=== PATIENT | female | born 1975 | race Caucasian/White ===

== ENCOUNTER 2023-12-26 09:42 | Outpatient (AMB) | payer OTHER, SELFPAY ==
--- NOTE | 2023-12-26 10:02 | AM.OFFWIN_ITS ---
Intake Vital Signs 12/26/23 10:04 Height 5 ft 5 in Weight 221 lb 8 oz BMI 36.9 BP 118/80 Blood Pressure Location Rt brachial Position Sitting Respiration 16 Pulse 80 Pulse Source Pulse Oximeter Temp 98.6 F Temp Source Oral Pulse Oximetry (%) 99 Oxygen Delivery Method Room Air Intake Visit Reasons: est/bronchitis? Intake Note: Fatigue, coughing, chest heaviness, wheezing. Allergies Penicillins Allergy (Unknown, Verified 12/26/23 10:09) welts all over body Medication List - [facility] No Known Home Meds Do you need a note to return to daycare/school/sports/work: Yes Return to daycare/school/sports/work/other note: work HPI HPI Comments History of Present Illness Details 48-year-old female here today with chief complaints of a cough. She reports that it started last Tuesday after being exposed to her child who had pneumonia and was sick for about 3-4 weeks prior to the onset of her illness. She reports that the cough is productive, her ears hurt, she has a sore throat from coughing, she feels tired. She reports the son did not have COVID. She did not perform a COVID test on herself. She denies any fever, chills, chest pain, hemoptysis. She also denies a history of asthma or COPD. She has not tried any medications at home to help her symptoms rather she has been eating pineapple and drinking warm tea without great relief. Exam: Awake alert NAD Sclera and conjunctiva clear bilat Nares mucoid discharge bilat, turbinates pink and edematous, no sinus tenderness with palpation bilat TM intact with mucoid congestion bilat, mild bulging MMM, pharynx positive erythema without exudate, postnasal drip RRR LS CTAB , hacking congested cough noted during exam without respiratory distress Plan: She has not allergy to penicillin. She reports that she has responded well in the past who azithromycin. We will prescribe a Z-Sami, Tessalon and Flonase. Advised to take as directed. Educated on reasons to return to the office. This note is constructed using voice recognition software. While every effort has been made to ensure accuracy in horse doctor, still errors may have been included Sometimes, these errors may affect the content or meaning of the given sentence . Physical Exam Vital Signs: Last Vital Signs Temp 98.6 F 12/26/23 10:04 Pulse 80 12/26/23 10:04 Resp 16 12/26/23 10:04 BP 118/80 12/26/23 10:04 Pulse Ox 99 12/26/23 10:04 Oxygen Delivery Method Room Air 12/26/23 10:04 BMI result Body Mass Index 36.9 Assessment & Plan Assessment & Plan (1) Otitis media: Code(s): H66.90 - Otitis media, unspecified, unspecified ear Qualifiers: Otitis media type: mucoid Chronicity: acute Laterality: bilateral Qu alified Code(s): H65.193 - Other acute nonsuppurative otitis media, bilateral Plan: . (2) Cough: Code(s): R05.9 - Cough, unspecified Qualifiers: Cough type: acute Qualified Code(s): R05.1 - Acute cough Plan: . Medications: New fluticasone propionate 50 mcg/actuation administer into each nostril 1 spray intranasal BID 16 grams 0RF azithromycin For 250 mg dose pack: take 500 mg today (day 1), then 250 mg for 4 days (days 2-5) PO 5 days 6 tabs 0RF benzonatate 100 mg PO TID 10 days PRN 30 caps 1RF cough Coding Level of Care Code Est Pt Level 3 (18009) Diagnoses Acute mucoid otitis media of both ears H65.193 Otitis media type: mucoid Chronicity: acute Laterality: bilateral Acute cough R05.1 Cough type: acute
[2023-12-26 10:04] VITALS: BP 118/80; PULSE 80; RESP 16; TEMP 37; O2SAT 99; BMI 36.9
== END 2023-12-26 12:33 | disposition home or self-care (01) ==
PROVIDERS: PCP Physician Assistant Medical; Visit Provider Nurse Practitioner Family
DX: H65.193 Other acute nonsuppurative otitis media, bilateral (principal); R05.1 Acute cough
CPT/HCPCS: 99213

== ENCOUNTER 2024-03-29 09:13 | Outpatient (AMB) | payer OTHER, SELFPAY ==
--- NOTE | 2024-03-29 09:20 | MHC.PC.OV ---
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 Intake Note: new patient to establish care Rn Charge Required: No Allergies Penicillins Allergy (Unknown, Verified 03/29/24 09:22) welts all over body Tobacco use date assessed: 03/29/24 Dental Screening Dental Screen Date: 03/29/24 Did you have a dental visit in the last 12 months?: Yes Did you have a dental problem in the last 6 months where you did not have access to dental care?: No Was dental information given to patient?: Patient has dentist HPI HPI Comments History of Present Illness Details This is a 48-year-old female with a past medical history of obesity, hypertension, palpitations, anxiety, and hyperlipidemia presenting to [facility]. She requests a physical exam. She transferred from [place]. We have not received her medical records. Palpitations-she was evaluated by Cardiology. She had a 48 hour Holter monitor which was normal, and EKGs were also normal. Episodes last a few minutes. They are associated with chest tightness and always associated with stress. Hyperlipidemia-no current medications. She is concerned about her weight impacting her blood pressure and cholesterol. The only time she was able to lose weight is when she starved herself. She has taken weight loss supplements. She walks daily for exercise. She follows a portion controlled diet that is low in carbohydrates and high in fiber. She takes turmeric. She has been unsuccessful at losing weight over the past 6 months. She is interested in weight loss medication. Her blood pressure is mildly elevated today, but at her appointment at the walk-in on 12/26/2023 it was 118/80. She monitors it at home, and it is less than 130/80. She will send me the readings over the portal in a couple of weeks. She was anxious to come today and very stressed. Patient says anxiety and stress impact her. She works at [employer] but she has not been given the opportunity for growth and development. She is looking for a new position. She has a 12-year-old son and 20-year-old daughter. Her 20-year-old daughter had mental health issues and was diagnosed with POTS a couple of years ago. They also do not always agree. Patient says she has also had some difficulties in her marriage in the last couple of years. She did therapy with her daughter in the past, but she does not want to do therapy right now citing her schedule. She does not sleep very well. She drinks 2 alcoholic beverages per night. She drinks a little more on the weekends but over a long period of time like 5 or 6 hours. She snores, but she denies witnessed apneic episodes. We discussed a sleep study, but she wants to work on weight loss 1st and see if the snoring resolves. Patient says snoring is new since she gained weight. Mammogram is scheduled in April at [facility]. Her chief guard is. Dr. [place]. She had a colonscopy December 2023. She had 1 polyp and diverticulosis. Repeat colonoscopy advised in 3 years. Eye and dental exams are scheduled. ROS: Constitutional: No unexplained weight loss, fever, chills chills or night sweats. +fatigue. Eyes: No vision changes, blurry vision, double vision, eye pain, eye redness, eye discharge. ENT: No hearing loss, sneezing, congestion, runny nose or sore throat. Respiratory: No shortness of breath, cough or sputum production. Cardiovascular: No chest pain, chest pressure or chest discomfort. No palpitations or pedal edema. Gastrointestinal: No anorexia, nausea, vomiting or diarrhea. No abdominal pain or blood in stool. Genitourinary: No dysuria, hematuria, urinary frequency. Neurologic: No headache, dizziness, syncope, unilateral weakness, ataxia, numbness or tingling in the extremities. Musculoskeletal: No joint pain or swelling. Hematologic/Lymphatics: No bleeding or bruising. No painful lymph nodes. Skin: No rash or itching. Endocrine: No cold or heat intolerance. No polyuria or polydipsia. Psychiatric: No SI or HI. See HPI Physical exam: Constitutional: Alert, in no distress. Head: Normocephalic. Eyes: Pupils are equal, round and reactive to light. Extraocular muscles intact. Ear, Nose and Throat: Canals clear. TMs normal. Normal nasal mucosa. No nasal discharge. No oral lesions. Neck: Supple, Full range of motion. No lymphadenopathy. No palpable thyroid masses. Respiratory: Clear to auscultation. Cardiovascular: S1 S2 regular. No murmurs. Gastrointestinal: Abdomen soft, non-tender, non-distended. Normal bowel sounds. No palpable masses. Neurologic: No focal neurological deficits. Symmetric patellar reflexes. Moves all extremities spontaneously. Sensation intact bilaterally. Skin: No rashes or lesions. Musculoskeletal: No gross deformities. Normal range of motion. Extremities: Warm and well perfused. No clubbing, cyanosis or edema. 3+ peripheral pulses bilaterally. Psychiatric: Normal mood and affect [facility] Medical History (Updated 03/29/24 @ 10:34 by NATALIE Solorio) Colon polyp Obesity, Class II, BMI 35-39.9 Routine physical examination Pure hypercholesterolemia Anxiety Palpitations Hypertension Surgical History (Updated 03/29/24 @ 09:28 by Adolfo Tadeo MA) History of ankle surgery Family History (Updated 03/29/24 @ 10:08 by NATALIE Solorio) Maternal Grandfather Prostate cancer Mother Diabetes Cancer of kidney Maternal Uncle Family history of hemochromatosis Social History (Updated 03/29/24 @ 09:25 by Adolfo Tadeo MA) Household Members: Spouse and Children Both parents involved: No Caregiver staying overnight: No Housing: House Are you a primary vp care management to a significant other at home: Yes Do you presently have visiting nurse or other home services: No 75 years or older and lives alone: No Alcohol intake: current Alcohol intake frequency: a few times a month Patient Tobacco Use Status: Never used Tobacco e-Cigarette/Vaping Use: Never Used Second Hand Smoke Exposure: No service: No Current occupational status: employed 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 1. Little interest or pleasure in doing things: several days 2. Feeling down, depressed, or hopeless: several days 3. Trouble falling or staying asleep, or sleeping too much: nearly every day 4. Feeling tired or having little energy: more than half the days 5. Poor appetite or overeating: nearly every day 6. Feeling bad about yourself - or that you are a failure or have let yourself or your family down: several days 7. Trouble concentrating on things, such as reading the newspaper or watching television: not at all 8. Moving or speaking so slowly that other people could have noticed. Or the opposite - being so fidgety or restless that you have been moving around a lot more than usual: not at all 9. Thoughts that you would be better off or of hurting yourself in some way: not at all Total score: 11 Depression Screening Interpretation: Positive Depression Screening Done: Yes 69011 - PHQ-9 Billing: Yes Source: Developed by Drs. Panda Guzman, Madelyn Casiano, Prakash Fletcher and colleagues, with an educational stephan from [employer]. Thrive Questionnaire Date Thrive assessed: 03/29/24 I am a: Patient What is your living situation today?: I have a steady place to live Within the past 12 months, did the food you bought not last and you didn't have the money to get more?: Never true Within the past 12 months, did you worry whether your food would run out before you got money to buy more?: Never true Do you have trouble paying for medicines?: No Do you have trouble getting transportation to medical appointments?: No Do you have trouble paying your heating and electricity bill?: No Do you have trouble taking care of your child, family member or friend?: No Do you have trouble with day-to-day activities such as bathing, preparing meals, shopping, managing finances, etc.?: No Are you currently unemployed and looking for a job?: No Are you interested in more education?: No Please select the resources that you would like help with: None Currently or been in a relationship where the following occur: No concerns reported THRIVE Score: 0 AUDIT C Alcohol Use Questionnaire (AUDIT-C) 1. How often do you have a drink containing alcohol?: 4 or more times a week 2. How many drinks containing alcohol do you have on a typical day when you are drinking?: 1 or 2 3. How often do you have six or more drinks on one occasion?: Never Total Score: 4 JOSE-7 AMB Questionnaire JOSE-7 Date JOSE - 7 assessed: 03/29/24 Feeling nervous, anxious, or on edge: 1 = Several days Not being able to stop or control worryin = More than half the days Worrying too much about different things: 3 = Nearly every day Trouble relaxin = Nearly every day Being so restless that it is hard to sit still: 0 = Not at all Becoming easily annoyed or irritable: 1 = Several days Feeling afraid as if something awful might happen: 1 = Several days Total JOSE-7 score (0-4 normal; 5-9 mild; 10-14 moderate; 15-21 severe): 11 Source: Developed by Drs. Panda Guzman, Madelyn Casiano, Prakash Fletcher and colleagues, with an educational stephan from [employer]. JOSE-7 Assessment Billing JOSE-7 Assessment Tool: JOSE-7 Assessment 04108 Physical exam (Primary Care) Vital Signs: Last Vital Signs Temp 98.4 F 03/29/24 09:28 Pulse 81 03/29/24 09:28 Resp 14 03/29/24 09:28 BP 142/88 H 03/29/24 09:28 Pulse Ox 97 03/29/24 09:28 Oxygen Delivery Method Room Air 03/29/24 09:28 BMI result Body Mass Index 37.3 Tobacco/Smoking Status: Tobacco use Status Tobacco use date assessed 03/29/24 03/29/24 09:31 Patient Tobacco Use Status Never used Tobacco 03/29/24 09:31 e-Cigarette/Vaping Use Never Used 03/29/24 09:31 PHQ-9: PHQ-9 Score PHQ-9: Total score 11 03/29/24 10:34 Depression Screening Interpretation: Positive Thrive Assessment: Date of Thrive Assessment Date Thrive assessed 03/29/24 03/29/24 09:31 Currently or been in a relationship where the following occur: No concerns reported Office Procedures Flu Questionnaire Does the patient have a severe egg allergy?: No Does the patient have severe life threatening allergies?: No Does the patient have a fever or illness today?: No Has the patient ever had Guillain-[place] Syndrome?: No Has the patient ever had any past reaction to a flu shot?: No Immunizations Fluarix Triv [id number] (PF) 45 mcg (15 mcg x 3)/0.5 mL IM syringe Performing Provider: NATALIE Solorio Performing Location: [facility] Administered by: Gayle Irizarry RN on 03/29/24 10:34 Dose Route Admin Location Dispensed Lot Number Expiration Date [employer] Project [employer] 0.5 mL IM Left Deltoid 0.5 mL [id number] 11/19/24 59121-042-49 Past[employer] VIS Given Date VIS Provided VIS Publication Date 03/29/24 Single Vaccine 20 Eligibility Eligibility Date Funding Source Not [facility] Eligible 03/29/24 Private Coding Level of Care Code Est Pt Level 3 (64648) Est Pt Prev Care 40-64y(92687) Diagnoses Routine physical examination Z00.00 Pure hypercholesterolemia E78.00 Obesity, Class II, BMI 35-39.9 E66.812 Hypertension I10 Additional Codes JOSE-7 Assessment Billing - JOSE-7 Assessment Tool: JOSE-7 Assessment 57331 ([id number]) PHQ-9 - 69308 - PHQ-9 Billing: Yes ([id number]) Assessment & Plan Assessment & Plan (1) Routine physical examination: Code(s): Z00.00 - Encounter for general adult medical examination without abnormal findings Category: Medical Plan: Patient is seen today for a routine physical. As part of this visit we reviewed the following issues, which are considered and essential part of preventative health in this age group: - Breast Cancer screening - Annual Chief Operator Hydroformer exam - Screening for colon cancer - Blood pressure screening - Cholesterol screening - Osteoporosis prevention including calcium/vitamin D intake, weight bearing exercise & smoking cessation - Nutritional and exercise counseling - Counseling of injury prevention including fire prevention, smoke alarms and seat belt usage - Screening for depression - Prevention of and/or testing for infectious diseases - Education about skin cancer - Recommendations about immunizations - Recommendation of an eye exam - Screening for substance abuse (2) Pure hypercholesterolemia: Code(s): E78.00 - Pure hypercholesterolemia, unspecified Category: Medical Plan: Check fasting lipid profile. Recommended Mediterranean diet and exercise 5 days per week for 30 minutes to promote weight loss. (3) Obesity, Class II, BMI 35-39.9: Code(s): E66.812 - Obesity, class 2 Category: Medical Plan: Patient has been unable to lose weight despite more than 6 months of lifestyle modifications. Check fasting labs and TSH. She would like to try a GLP 1. She denies contraindications to this medication. We reviewed the potential side effects and adverse effects and administration and need for titration based on tolerability and response. Once her blood tests have been completed I will review them and submit the prescription to the pharmacy if it is appropriate. (4) Hypertension: Code(s): I10 - Essential (primary) hypertension Category: Medical Plan: Mildly elevated blood pressure today. She will send the readings over the portal in couple of weeks. Plan Follow up in 3 months for obesity/med check. Orders: Orders Influenza [id number] Immunization Today Z23 - Encounter for immunization Comprehensive Met. Panel Today E78.00 - Pure hypercholesterolemia, unspecified, Z00.00 - Encounter for general adult medical examination without abnormal findings Lipid Panel Today E78.00 - Pure hypercholesterolemia, unspecified, E78.5 - Hyperlipidemia, unspecified, Z00.00 - Encounter for general adult medical examination without abnormal findings TSH reflex Free T4 Today E78.00 - Pure hypercholesterolemia, unspecified, Z00.00 - Encounter for general adult medical examination without abnormal findings Complete Blood Count no Diff Today E78.00 - Pure hypercholesterolemia, unspecified, Z00.00 - Encounter for general adult medical examination without abnormal findings Magnesium Today E78.00 - Pure hypercholesterolemia, unspecified, Z00.00 - Encounter for general adult medical examination without abnormal findings Hemoglobin A1c Today R73.01 - Impaired fasting glucose Medications: New Fluarix Triv [id number] (PF) (flu vacc [id number] 6mos up(PF)) 0.5 mL IM ONCE 0.5 mL 0RF NS Z23 - Encounter for immunization
[2024-03-29 09:28] VITALS: BP 142/88; PULSE 81; RESP 14; TEMP 36.9; O2SAT 97; BMI 37.3
== END 2024-03-29 10:32 | disposition home or self-care (01) ==
LOC: HO.HMCFM 09:14
PROVIDERS: PCP Physician Assistant Medical; Visit Provider Physician Assistant Medical
DX: Z00.00 Encounter for general adult medical examination without abnormal findings (principal); E78.00 Pure hypercholesterolemia, unspecified; E66.812 Obesity, class 2; Z68.37 Body mass index [BMI] 37.0-37.9, adult; I10 Essential (primary) hypertension; Z23 Encounter for immunization

== ENCOUNTER → 2024-03-29 09:13 | Outpatient (BNVA) | payer OTHER, SELFPAY | PROVIDERS: PCP Physician Assistant Medical; Visit Provider Physician Assistant Medical | DX: Z00.00 Encounter for general adult medical examination without abnormal findings (principal); Z23 Encounter for immunization; E78.00 Pure hypercholesterolemia, unspecified; E66.812 Obesity, class 2; Z68.37 Body mass index [BMI] 37.0-37.9, adult; I10 Essential (primary) hypertension | CPT/HCPCS: 90471; 90656; 96127 ==

== ENCOUNTER 2024-04-02 08:26 | Outpatient (REF) | payer OTHER, SELFPAY ==
[2024-04-02 11:18] LABS: Hematocrit 42.3 % (37.0-47.0); Hemoglobin 13.5 g/dl (12.0-16.0); Mean Corpuscular HGB Conc 31.9 g/dl (31.0-35.0); Mean Corpuscular Hemoglobin 30.4 pg (27.0-33.0); Mean Corpuscular Volume 95.3 fL (80.0-98.0); Mean Platelet Volume 9.8 fL (9.4-12.3); Platelet Count 309 X10*3/uL (160-400); Red Blood Count 4.44 X10*6/uL (4.20-5.50); White Blood Count 7.7 X10*3/uL (4.8-10.8)
[2024-04-02 11:27] LABS: Estimated Average Glucose 105 mg/dL; Hemoglobin A1C 123.3398 umol/L; Hemoglobin A1c % 5.3 % (<6.0); Total Hemoglobin (HGBA1C) 3531.9802 umol/L
[2024-04-02 11:59] LABS: Alanine Aminotransferase 19 U/L (0-31); Albumin Level 4.5 g/dL (3.5-5.0); Alkaline Phosphatase 67 U/L (39-117); Anion Gap 12 (12-20); Aspartate Amino Transferase 19 U/L (5-31); Bilirubin Total 0.4 mg/dL (0.0-1.0); Blood Urea Nitrogen 14 mg/dL (9-16); Calcium 9.3 mg/dL (8.4-10.2); Carbon Dioxide 22 mmol/L (22-29); Chloride 109 mmol/L (96-108); Cholesterol 222 mg/dL (<200); Estimated Glomerular Filt Rate > 60; Glucose Random 86 mg/dL (60-115); HDL Cholesterol 35 mg/dL (>40); LDL Cholesterol Calculated 146 mg/dL (<100); Magnesium 2.2 mg/dL (1.6-2.6); Potassium 3.7 mmol/L (3.3-5.1); Sodium 139 mmol/L (135-145); TSH reflex Free T4 1.66 uIU/mL (0.32-4.0); Total Protein 7.6 g/dL (6.5-8.0); Triglycerides 207 mg/dL (<150)
== END 2024-04-02 08:27 | disposition home or self-care (01) ==
LOC: HO.WFDLDS 08:26
PROVIDERS: Visit Provider Physician Assistant Medical
DX: Z00.00 Encounter for general adult medical examination without abnormal findings (principal); E78.00 Pure hypercholesterolemia, unspecified; E78.5 Hyperlipidemia, unspecified; R73.01 Impaired fasting glucose
CPT/HCPCS: 36415; 80053; 80061; 83036; 83735; 84443; 85027

== ENCOUNTER 2024-07-02 08:54 | Outpatient (AMB) | payer OTHER, SELFPAY ==
--- NOTE | 2024-07-02 08:57 | MHC.PC.OV ---
Vital Signs 07/02/24 09:00 Height 5 ft 5 in Weight 207 lb BMI 34.4 BP 142/88 H Blood Pressure Location Rt brachial Position Sitting Respiration 16 Pulse 88 Pulse Source Pulse Oximeter Pulse Oximetry (%) 100 Oxygen Delivery Method Room Air Intake Visit Reasons: med check Allergies Penicillins Allergy (Unknown, Verified 07/02/24 09:01) welts all over body Medication List - Last Reconciled 07/02/24 by NATALIE Solorio norethindrone acetate mg PO DAILY tirzepatide (weight loss) (Zepbound) 7.5 mg (0.5 mL) subcut QWEEK triamcinolone acetonide 0.1% 1 appl topical BID PRN 7 days Tobacco use date assessed: 07/02/24 Dental Screening Dental Screen Date: 07/02/24 Did you have a dental visit in the last 12 months?: Yes Did you have a dental problem in the last 6 months where you did not have access to dental care?: No Was dental information given to patient?: Patient has dentist HPI HPI Comments History of Present Illness Details This is a 49-year-old female with a past medical history of hypertension, obesity, impaired fasting glucose, hyperlipidemia and anxiety presenting for a medication check. Patient is taking Zepbound. She just increase to 7.5 mg weekly. She denies side effects on the medication. She has lost 17 lb since starting the medication after her visit in 04/11/2024. She is also following a low carbohydrate, low sugar, low-salt diet and monitoring her caloric intake. She walks for exercise. She decreased alcohol consumption to 1 or 2 drinks per week. She measures out glass of wine or liquor if she is having a cocktail. She is sleeping better. Her blood pressure is still elevated today. Patient reports that she had a coffee before the visit, and she also had a sign on to work for 2 hours and rushed to be here. She has a blood pressure cuff at home. Reports that at a recent OBGYN visit blood pressure was normal. No headaches, chest pain or shortness of breath. She endorses eczema flare on her hands and lower legs this winter. She is using gold schroeder and another [id number] cream, but her symptoms persist. It is itchy. ROS: Constitutional: No unexplained weight loss, fever, chills or night sweats. Respiratory: No shortness of breath, cough or sputum production. Cardiovascular: No chest pain, chest pressure or chest discomfort. Gastrointestinal: No abdominal pain, nausea, vomiting, anorexia or constipation. Endocrine: No cold or heat intolerance. No polyuria or polydipsia. Psychiatric: No depression. She endorses stress related to her 12-year-old son. He is having difficulty with school. He does not want to do his homework. This is going a bit better lately. He was failing four classes, but now he is only failing 2 classes. Physical exam: Constitutional: Alert, in no distress. Neck: Supple, Full range of motion. No lymphadenopathy. No palpable thyroid masses. Respiratory: Clear to auscultation. Cardiovascular: S1 S2 regular. No murmurs Extremities: Warm and well perfused. No clubbing, cyanosis or edema. Psychiatric: Normal mood and affect Skin: Mildly erythematous dry patches on the back of the hands and right siegel [facility] Medical History (Updated 07/02/24 @ 09:49 by NATALIE Solorio) Eczema Obesity, class 1 IFG (impaired fasting glucose) Colon polyp Obesity, Class II, BMI 35-39.9 Routine physical examination Pure hypercholesterolemia Anxiety Palpitations Hypertension Surgical History History of ankle surgery Family History Maternal Grandfather Prostate cancer Mother Diabetes Cancer of kidney Maternal Uncle Family history of hemochromatosis Social History Household Members: Spouse and Children Housing: House Are you a primary resident care provider to a significant other at home: Yes Do you presently have visiting nurse or other home services: No Alcohol intake: current Alcohol intake frequency: a few times a month Patient Tobacco Use Status: Never used Tobacco e-Cigarette/Vaping Use: Never Used Second Hand Smoke Exposure: No service: No Current occupational status: employed 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 1. Little interest or pleasure in doing things: not at all 3. Trouble falling or staying asleep, or sleeping too much: several days 4. Feeling tired or having little energy: several days 5. Poor appetite or overeating: not at all 6. Feeling bad about yourself - or that you are a failure or have let yourself or your family down: not at all 7. Trouble concentrating on things, such as reading the newspaper or watching television: not at all 8. Moving or speaking so slowly that other people could have noticed. Or the opposite - being so fidgety or restless that you have been moving around a lot more than usual: not at all 9. Thoughts that you would be better off or of hurting yourself in some way: not at all Depression Screening Interpretation: Negative Depression Screening Done: Yes 34372 - PHQ-9 Billing: Yes Source: Developed by Drs. Panda Guzman, Madelyn Casiano, Prakash Fletcher and colleagues, with an educational stephan from [employer]. Thrive Questionnaire Date Thrive assessed: 06/25/24 I am a: Patient What is your living situation today?: I have a steady place to live Within the past 12 months, did the food you bought not last and you didn't have the money to get more?: Never true Within the past 12 months, did you worry whether your food would run out before you got money to buy more?: Never true Do you have trouble paying for medicines?: No Do you have trouble getting transportation to medical appointments?: No Do you have trouble paying your heating and electricity bill?: No Do you have trouble taking care of your child, family member or friend?: No Do you have trouble with day-to-day activities such as bathing, preparing meals, shopping, managing finances, etc.?: No Are you currently unemployed and looking for a job?: No Are you interested in more education?: No Please select the resources that you would like help with: None Currently or been in a relationship where the following occur: No concerns reported THRIVE Score: 0 AUDIT C Alcohol Use Questionnaire (AUDIT-C) 1. How often do you have a drink containing alcohol?: Monthly or less 2. How many drinks containing alcohol do you have on a typical day when you are drinking?: 1 or 2 3. How often do you have six or more drinks on one occasion?: Never Total Score: 1 JOSE-7 AMB Questionnaire JOSE-7 Date JOSE - 7 assessed: 07/02/24 Feeling nervous, anxious, or on edge: 1 = Several days Not being able to stop or control worryin = Several days Worrying too much about different things: 1 = Several days Trouble relaxin = More than half the days Being so restless that it is hard to sit still: 1 = Several days Becoming easily annoyed or irritable: 1 = Several days Feeling afraid as if something awful might happen: 1 = Several days Total JOSE-7 score (0-4 normal; 5-9 mild; 10-14 moderate; 15-21 severe): 8 Source: Developed by Drs. Panda Guzman, Madelyn Casiano, Prakash Fletcher and colleagues, with an educational stephan from [employer]. Physical exam (Primary Care) Vital Signs: Last Vital Signs Pulse 88 07/02/24 09:00 Resp 16 07/02/24 09:00 BP 142/88 H 07/02/24 09:00 Pulse Ox 100 07/02/24 09:00 Oxygen Delivery Method Room Air 07/02/24 09:00 BMI result Body Mass Index 34.4 Tobacco/Smoking Status: Tobacco use Status Tobacco use date assessed 07/02/24 07/02/24 09:04 Patient Tobacco Use Status Never used Tobacco 07/02/24 08:59 e-Cigarette/Vaping Use Never Used 07/02/24 08:59 Depression Screening Interpretation: Negative Thrive Assessment: Date of Thrive Assessment Date Thrive assessed 06/25/24 07/02/24 08:59 Currently or been in a relationship where the following occur: No concerns reported Results Reviewed Results Reviewed: Laboratory Tests 04/02/24 08:27 Chloride 109 H Creatinine 0.71 Estimated GFR > 60 Hemoglobin A1c % 5.3 Triglycerides 207 H Cholesterol 222 H LDL Cholesterol, Calc 146 H HDL Cholesterol 35 L Coding Level of Care Code Est Pt Level 4 (83032) Complex EM visit Add On G2211 Diagnoses Obesity, class 1 E66.811 Pure hypercholesterolemia E78.00 Hypertension I10 IFG (impaired fasting glucose) R73.01 Eczema L30.9 Additional Codes PHQ-9 - 39668 - PHQ-9 Billing: Yes ([id number]) Assessment & Plan Assessment & Plan (1) Obesity, class 1: Code(s): E66.811 - Obesity, class 1 Category: Medical Plan: The patient will continue lifestyle modifications including monitoring caloric intake, low carbohydrate, low sugar diet. She reduced alcohol consumption. I congratulated her on these changes. She walks for exercise. She plans to exercise more in the coming year. She has lost 17 lb so far, and she denies side effects on Zepbound. Our plan is to continue to titrate the dose based on efficacy and tolerability. (2) Pure hypercholesterolemia: Code(s): E78.00 - Pure hypercholesterolemia, unspecified Category: Medical Plan: Continue low-cholesterol diet. Continue exercising. Repeat lipid profile. (3) Hypertension: Code(s): I10 - Essential (primary) hypertension Category: Medical Plan: We discussed that her blood pressure is still elevated. She took medication for this in the past. Patient reports normal blood pressure reading at gynecology office. She is going to check readings at home and send them over the patient portal in a few weeks. We will continue to monitor. If blood pressures remain elevated we discussed the need for antihypertensive medication. Recommended low-sodium diet, avoidance of caffeine and stress reduction when possible. Continue lifestyle modifications. We reviewed risks of uncontrolled hypertension. (4) IFG (impaired fasting glucose): Code(s): R73.01 - Impaired fasting glucose Category: Medical Plan: Continue GLP 1 and efforts at weight loss and low carb/low sugar diet. Recheck A1c and fasting glucose. (5) Eczema: Code(s): L30.9 - Dermatitis, unspecified Category: Medical Plan: Apply topical triamcinolone twice daily to eczema spots for up to 7 days. Topical steroids side effects discussed including skin thinning and discoloration. Do not apply to face or neck. Apply emollient twice daily. Avoid fragrance soaps, lotions and detergents. Plan Follow up in 3 months. Medications: New triamcinolone acetonide 0.1% 1 appl topical BID 7 days PRN 80 grams 0RF eczema
[2024-07-02 09:00] VITALS: BP 142/88; PULSE 88; RESP 16; O2SAT 100; BMI 34.4
--- OUTSIDE RECORDS SUMMARY | 2024-07-02 09:21 | XMS_ITS ---
Author Organization [facility] Address [address] [place] [address] Care Team Providers Care Kennel Attendant Name Role Phone Leanna Toledo Unavailable [phone] Allergies Allergen (clinical drug ingredient) Drug/Non Drug Allergy documented on EMR Reaction Allergy Type Onset Date Status amoxicillin Amoxicillin Unknown Drug Allergy Act genoveva Penicillin Hives Drug Allergy Active Results Component Value Reference Range Notes Urinalysis Reviewed date:10/26/2023 08:25:51 AM Interpretation: Performing Lab: Notes/Report: PH 5.0 PROTEIN Neg GLUCOSE Neg BLOOD Neg REASON FOR VISIT Annual SUPERVISOR STRIPPING Physical, Annual SUPERVISOR STRIPPING Physical 40-49 Medications Medication SIG (Take, Route, Frequency, Duration) Notes Start Date End Date Status Fish Oil 1000 MG 1 capsule Orally Onc e a day for 30 day(s) Active PreserVision AREDS - as directed Orally Active Vitamin C 500 MG as directed Orally Unknown dose Active Potassium 1 tab Oral for 14 days Active Norethindrone Acetate 5 MG 1 tablet Orally DAILY FOR 10 DAYS IF NO MENSES Q 3 MONTHS for 90 days 10/26/2023 Active Social History Tobacco Use: Social History Observation Description Date Details (start date - stop date) Never Smoker NA - NA Tobacco Use/Smoking Question Answer Notes Are you a nonsmoker Alcohol Screen (Audit-C) Question Answer Notes Did you have a drink contain ing alcohol in the past year? Yes How often did you have a dri nk containing alcohol in the past year? 4 or more times a week (4 points) How many drinks did you have on a typical day when you were drinking in the past year? 1 or 2 drinks (0 point) Points 4 Interpretation Positive Sexual History Question Answer Notes Had sex in the past 12 months (vaginal, oral, or anal)? No Have you ever had a Sexually transmitted disease ? No Vital Signs Temperature 97.4 degrees Fahrenheit 10/26/19 24 Blood pressure systolic 118 mm Hg 10/26/19 24 Blood pressure diastolic 74 mm Hg 024 Height 65 in 10/26/2023 Weight 220 lbs 10/26/2023 BMI 36.61 kg/m2 10/26/2023 Encounters Encounter Location Date Provider Diagnosis [address] [address] 10/26/2023 Leanna Toledo Encounter for gynecological examination (general) (routine) without abnormal findings Z01.419 ; Encounter for screening mammogram for malignant neoplasm of breast Z12.31 ; Unspecified menopausal and perimenopausal disorder N95.9 ; Personal history of cervical dysplasia Z87.410 ; Incomplete uterovaginal prolapse N81.2 and Rectocele N81.6 Assessments Encounter Date Diagnosis (ICD Code) Assessment Notes Treatment Notes Treatment Clinical Notes Section Notes 10/26/2023 Encounter for gynecological examination (general) (routine) without abnormal findings (ICD-10 - Z01.419) NO PAP TEST, DUE IN 2024. 10/26/2023 Encounter for screening mammogram for malignant neoplasm of breast (ICD-10 - Z12.31) REGULAR MAMMOGRAMS AND SBE'S WERE RECOMMENDED. 10/26/2023 Unspecified menopausal and perimenopausal disorder (ICD-10 - N95.9) DISCUSSED PERIMENOPAUSE AND MENOPAUSE AND SYMPTOMS ASSOCIATED WITH THESE. DISCUSSED CHRONIC ANOVULATION AND POSSIBLE HEAVY BLEEDING. RECOMMENDED SHE TAKE AYGESTIN 5 MG DAILY FOR 10 DAYS Q 3 MONTHS IF SHE DOES NOT BLEED. PAT AGREED. DETAILED INSTRUCTIONS WERE GIVEN. 10/26/2023 Personal history of cervical dysplasia (ICD-10 - Z87.410) DISCUSSED PREVIOUS HX OF LEDY AND SUBSEQUENTLY NEGATIVE PAP TESTS. REPEAT PAP TEST IN 2024. 10/26/2023 Incomplete uterovaginal prolapse (ICD-10 - N81.2) DISCUSSED FINDINGS, DX AND TX OPTIONS. PAT IS ASYMPTOMATIC. SHE WILL CALL IF SHE NOTES VAGINAL PRESSURE, DYSPAREUNIA, INCONTINENCE OR ANY SYMPTOM REFERRABLE TO THE PROLAPSE. WILL REFER TO DR MIJARES. 10/26/2023 Rectocele (ICD-10 - N81.6) Plan Of Treatment Medication Medication Name Sig Start Date Stop Date Notes Norethindrone Acetate 5 MG 1 tablet Oral ly DAILY FOR 10 DAYS IF NO MENSES Q 3 MONTHS for 90 days 10/26/2023 Treatment Notes Assessment Notes Encounter for gynecological examination (general) (routine) without abnormal findings NO PAP TEST, DUE IN 2024. Encounter for screening mamm ogram for malignant neoplasm of breast REGULAR MAMMOGRAMS AND SBE'S WERE RECOMMENDED. Unspecified menopausal and p erimenopausal disorder DISCUSSED PERIMENOPAUSE AND MENOPAUSE AND SYMPTOMS ASSOCIATED WITH THESE. DISCUSSED CHRONIC ANOVULATION AND POSSIBLE HEAVY BLEEDING. RECOMMENDED SHE TAKE AYGESTIN 5 MG DAILY FOR 10 DAYS Q 3 MONTHS IF SHE DOES NOT BLEED. PAT AGREED. DETAILED INSTRUCTIONS WERE GIVEN. Personal history of cervical dysplasia DISCUSSED PREVIOUS HX OF LEDY AND SUBSEQUENTLY NEGATIVE PAP TESTS. REPEAT PAP TEST IN 2024. Incomplete uterovaginal prolapse DISCUSSED FINDINGS, DX AND TX OPTIONS. PAT IS ASYMPTOMATIC. SHE WILL CALL IF SHE NOTES VAGINAL PRESSURE, DYSPAREUNIA, INCONTINENCE OR ANY SYMPTOM REFERRABLE TO THE PROLAPSE. WILL REFER TO DR MIJARES. Pending Test Test Name Order Date MM Digital Mammo Screening 10/26/2023 Next Appt Details Follow Up: 1 Year, Reason: Provider Name:Leanna musa, 10/30/2024 08:20:00 AM, [address], [address], [place], [address], Progress Notes * MARY CORNEJODOB:1975 (48 yo F)Acc No.[id number]:10/26/2023 PROGRESS NOTES Patient:?MARY CORNEJO Appointment Provider:?Leanna musa M.D. :1975???Age:48 Y???Sex:Female D ate:10/26/2023 Address:[address] [place] [address], , [id number] Subjective: * Chief Complaints: * ??? Annual SUPERVISOR STRIPPING PhysicalAnnua l SUPERVISOR STRIPPING Physical 40-49 * HPI: ???New/Follow-up Patient Consult:? PAT IS PERIMENOPAUSAL AND HAS HAD MISSED PERIODS.? SHE DISCONTINUED TAKING AYGESTIN IN 2022 AND DID NOT MENSTRUATE UNTIL AUGUST 2023.? HER BLEEDING LASTED 3 DAYS AND WAS REGULAR IN FLOW. S/P LEEP IN 1998 FOR CERVICAL DYSPLASIA.? SUBSEQUENT PAP TESTS HAVE BEEN NEGATIVE EXCEPT FOR ONE IN 2008 WHEN ASCUS, +HPV WAS? NOTED.? COLPOSCOPY WAS NEGATIVE.? HER LAST PAP TEST IN 2021 WAS NEGATIVE AND HPV NEGATIVE. HER LAST MAMMOGRAM DONE IN APR 2023 SHOWED BREASTS ARE NOT DENSE AND WAS NORMAL. SHE HAS NOT HAD A COLONOSCOPY DONE YET. MODERNA X 2. ???Annual:? Patient presents for annual exam, ages 40-49. ?General Health Maintenance:?Current breast complaints:?no breast pain, mass, discharge, or skin changes ?Urinary problems:?patient reports no urinary health problems or bowel health problems ?Calcium intake:?takes adequate calcium via diet and supplementation ?Significant SUPERVISOR STRIPPING problems:?no significant speech language assistant symptoms or problems * ROS:?general:?no?chest pain.?no?palpitations.?no?headache.?no?cough.?no?shortness of breath.?no?fever.?no?unexplained weight loss.?no?nausea/vomiting.?no?change in bowel movements.?no blood in stool.?no?genitourinary complaints.?no?skin complaints.? * Medical History:? * Grooming Assistant History:?/ Para?4/2.?Sexual activity?not currently sexually active.?Last Pap Smear:?10/16/21 NIL, NEG HPV, 2019.?Mammogram:?04/23/23 Breast Tissue is Almost Entirely Fatty, 03/06/22 Breast Tissue is Almost Entirely Fatty, 03/01/21 < 50% density.?Abnormal Pap Smear:?2008 ASCUS, + HPV, 1998, LEDY I.?LMP and menses?08/27/23 x 3 days.? * OB History:?Total pregnancies?4.?Total living children?2.?NVD?2.?Ectopic ?1.? * Surgical History:?Hand Surge ry Foot Surgery Cholecystectomy Colposcopy LEEP * Hospitalization/Major Diagno stic Procedure:?2 Vaginal Deliveries See Surgical Hx * Family History:?Mother: porfirio flanagan, Kidney Cancer, Diabetes, Congestive Heart Failure.?Father: , COPD, Congestive Heart Failure.? * Social History:?Tobacco Use:?Tobacco Use/Smoking?Are you a?nonsmoker ???Sexual History:?Sexual History?Had sex in the past 12 months (vaginal, oral, or anal)??No ?Have you ever had a Sexually transmitted disease??No ?Details of Sexual History?Are you sexually active??No ???Drugs/Alcohol:?Drugs?Have you used drugs other than those for medical reasons in the past 12 months??No ?Alcohol Screen (Audit-C)?Did you have a drink containing alcohol in the past year??Yes ?How often did you have a drink containing alcohol in the past year??4 or more times a week (4 points) ?How many drinks did you have on a typical day when you were drinking in the past year??1 or 2 drinks (0 point) ?Points?4 ?Interpretation?Positive ???Miscellaneous:?Children: yes, 2. ?Exercise: yes, walking. ?Home smoke detector use: yes. ?Living with: spouse. ?Marital status: . ?Natural support system: yes. ?Occupation: Works full-time. ?Sexually active: no. * Medications:?TakingPotassium 1 tab Oral PreserVision AREDS - Tablet as directed Orally Vitamin C 500 MG Capsule as directed Orally , Notes to Pharmacist: Unknown doseFish Oil 1000 MG Capsule 1 capsule Orally Once a day Taking Potassium 1 tab Oral Taking PreserVision AREDS - Tablet as directed Orally Taking Vitamin C 500 MG Capsule as directed Orally , Notes to Pharmacist: Unknown doseTaking Fish Oil 1000 MG Capsule 1 capsule Orally Once a day DiscontinuedVitamin B2 Probiotic - Tablet Delayed Release as directed Orally Multi-Vitamin - Tablet 1 tablet Orally Once a day Aygestin 5 MG Tablet 1 tablet Orally DAILY FOR 10 DAYS Q 3 MONTHS Milk Thistle 500 MG Capsule as directed Orally , Notes to Pharmacist: unknown doseMedication List reviewed and reconciled with the patientDiscontinued Vitamin B2 Discontinued Probiotic - Tablet Delayed Release as directed Orally Discontinued Multi-Vitamin - Tablet 1 tablet Orally Once a day Discontinued Aygestin 5 MG Tablet 1 tablet Orally DAILY FOR 10 DAYS Q 3 MONTHS Discontinued Milk Thistle 500 MG Capsule as directed Orally , Notes to Pharmacist: unknown doseMedication List reviewed and reconciled with the patient * Allergies:?Penicillin: Hives - AllergyAmoxicillin: Allergyno[Allergies Verified] Objective: * Vitals:?Ht: 65 in, Wt:220lbs , BMI:36.61Index, BP:118/74mm Hg, Temp:97.4F. * Examination: ???General Exam: ?CONSTITUTIONAL:?NECK/THYROID:?RESPIRATORY:?Auscultation: clear to auscultation bilaterally, Respiratory Effort: normal.?CARDIOVASCULAR:?Auscultation: regular rate and rhythm.?BREAST, Right:?BREAST, Left:?GASTROINTESTINAL:?MUSCULOSKELETAL:?SKIN:?NEURO/PSYCH:?Genitourinary: ?EXTERNAL GENITALIA:?VAGINA:?BLADDER:?URETHRA:?CERVIX:?UTERUS:?ADNEXA:?ANUS AND PERINEUM:? Assessment: * Assessment: 1.?Encounter for gynecologic al examination (general) (routine) without abnormal findings - Z01.419?2.?Encounter for screening mammogram for malignant neoplasm of breast - Z12.31?3.?Unspecified menopausal and perimenopausal disorder - N95.9?4.?Personal history of cervical dysplasia - Z87.410?5.?Incomplete uterovaginal prolapse - N81.2?6.?Rectocele - N81.6? Plan: * Treatment: ? Value Reference Range ?PH 5.0 * ?PROTEIN Neg * ?GLUCOSE Neg * ?BLOOD Neg * D. JUAQUIN 10/26/2023 08:24:36 AM EDT > Notes: NO PAP TEST, DUE IN 2024.??2.?Encounter for screening mammogram for malignant neoplasm of breast?Imaging: MM Digital Mammo Screening Notes: REGULAR MAMMOGRAMS AND SBE'S WERE RECOMMENDED.??3.?Unspecified menopausal and perimenopausal disorder? Start Norethindrone Acetate Tablet, 5 MG, 1 tablet, Orally, DAILY FOR 10 DAYS IF NO MENSES Q 3 MONTHS, 90 days, 10 Tablet, Refills 3.?? Notes: DISCUSSED PERIMENOPAUSE AND MENOPAUSE AND SYMPTOMS ASSOCIATED WITH THESE. DISCUSSED CHRONIC ANOVULATION AND POSSIBLE HEAVY BLEEDING. RECOMMENDED SHE TAKE AYGESTIN 5 MG DAILY FOR 10 DAYS Q 3 MONTHS IF SHE DOES NOT BLEED. LJ AGREED. DETAILED INSTRUCTIONS WERE GIVEN.??4.?Personal history of cervical dysplasia? Notes: DISCUSSED PREVIOUS HX OF LEDY AND SUBSEQUENTLY NEGATIVE PAP TESTS. REPEAT PAP TEST IN 2024.??5.?Incomplete uterovaginal prolapse? Notes: DISCUSSED FINDINGS, DX AND TX OPTIONS. LJ IS ASYMPTOMATIC. SHE WILL CALL IF SHE NOTES VAGINAL PRESSURE, DYSPAREUNIA, INCONTINENCE OR ANY SYMPTOM REFERRABLE TOTHE PROLAPSE. WILL REFER TO DR MIJARES.?? * Procedure Codes:? * Preventive Medicine:? ??YOUR PREVENTIVE WELLNESS PLAN:?Osteoporosis prevention?Calcium, D, strength training.?Breast Cancer Screening (Mammogram):?annually.?Cervical Cancer Screening (Pap Smear):?q 3 years with HPV screen.?Colorectal Cancer Screening:?q 10 years.? * Follow Up:?1 Year * Images: Billing Information: * Visit Code:? 14901 Preventive Care New Pt. Age 40-64. 86184 Preventive Care Est Pt. Age 40-64. * Procedure Codes:? * Sign off status: Completed true * Appointment Provider:?Leanna Toledo M.D. Date:?10/26/2023 Generated for Cristal simons/Michelle/Balbinasmitting on:?07/02/2024 09:21 AM EST History and Physical Notes * HPI (History of Present Illness) Category Sub-Category Detail Notes Category Not es New/Follow-up Patient Consult PAT IS PERIMENOPAUSAL AND HAS HAD MISSED PERIODS. SHE DISCONTINUED TAKING AYGESTIN IN 2022 AND DID NOT MENSTRUATE UNTIL AUGUST 2023. HER BLEEDING LASTED 3 DAYS AND WAS REGULAR IN FLOW. S/P LEEP IN 1998 FOR CERVICAL DYSPLASIA. SUBSEQUENT PAP TESTS HAVE BEEN NEGATIVE EXCEPT FOR ONE IN 2008 WHEN ASCUS, +HPV WAS NOTED. COLPOSCOPY WAS NEGATIVE. HER LAST PAP TEST IN 2021 WAS NEGATIVE AND HPV NEGATIVE. HER LAST MAMMOGRAM DONE IN APR 2023 SHOWED BREASTS ARE NOT DENSE AND WAS NORMAL. SHE HAS NOT HAD A COLONOSCOPY DONE YET. MODERNA X 2. Annual General Health Maintenance: Current breast complaints:: no breast pain, mass, discharge, or skin changes Urinary problems:: patient r eports no urinary health problems or bowel health problems Calcium intake:: takes adequ ate calcium via diet and supplementation Significant SUPERVISOR STRIPPING problems:: n o significant speech language assistant symptoms or problems Examination Category Sub-Category Detail Notes Category Not es General Exam CONSTITUTIONAL: General Appearan ce:: alert, in no acute distress, normal, well nourished NECK/THYROID: Inspection/Palpation:: normal Thyroid:: normal size and shape RESPIRATORY: Auscultation: clear to auscultation bilaterally, Respiratory Effort: normal CARDIOVASCULAR: Auscultation: regula r rate and rhythm GASTROINTESTINAL: Abdomen:: no masses, nontender , nondistended Liver and Spleen:: normal Hernias:: no hernias present, no inguina l adenopathy MUSCULOSKELETAL: Inspection/Palpation:: no clubb ing, cyanosis, or edema SKIN: Skin:: normal NEURO/PSYCH: Orientation:: time , place, pers on Mood/Affect:: normal BREAST, Right: Inspection/Palpation :: no discharge, no masses present, no nipple retraction, no skin changes, no skin dimpling, no tenderness, no lymphadenopathy, no axillary mass, no axillary tenderness BREAST, Left: Inspection/Palpation :: no discharge, no masses present, no nipple retraction, no skin changes, no skin dimpling, no tenderness, no lymphadenopathy, no axillary mass, no axillary tenderness Genitourinary EXTERNAL GENITALIA: External Genitalia:: nor mal, no lesions VAGINA: Vagina:: normal appe arance, no abnormal discharge, no lesions, rectocele present (2nd degree) BLADDER: Bladder:: no mass, nontender URETHRA: Urethra:: no erythem a or lesions present CERVIX: Cervix:: no lesions, nontender c ervix is 1 cm above the introital opening UTERUS: Uterus:: nontender, normal contour, normal mobility, normal size ADNEXA: Adnexa:: no masses, no tendernes s ANUS AND PERINEUM: Anus/Perineum:: visually norm al
--- OUTSIDE RECORDS SUMMARY | 2024-07-02 09:22 | XMS_ITS | Patient Health Record ---
Author Organization [facility] Address [address] [place] [address] Care Team Providers Care Meat Cooler Name Role Phone Leanna Toledo Unavailable [phone] Allergies Allergen (clinical drug ingredient) Drug/Non Drug Allergy documented on EMR Reaction Allergy Type Onset Date Status amoxicillin Amoxicillin Unknown Drug Allergy Act genoveva Penicillin Hives Drug Allergy Active Results Component Value Reference Range Notes Urinalysis Reviewed date:10/26/2023 08:25:51 AM Interpretation: Performing Lab: Notes/Report: PH 5.0 PROTEIN Neg GLUCOSE Neg BLOOD Neg Reason For Referral No Information Medications Medication SIG (Take, Route, Frequency, Duration) Notes Start Date End Date Status Fish Oil 1000 MG 1 capsule Orally Onc e a day for 30 day(s) Active Norethindrone Acetate 5 MG 1 tablet Orally DAILY FOR 10 DAYS IF NO MENSES Q 3 MONTHS for 90 days 10/26/2023 Active PreserVision AREDS - as directed Orally Active Vitamin C 500 MG as directed Orally Unknown dose Active Potassium 1 tab Oral for 14 days Active Social History Tobacco Use: Social History [...] had a Sexually transmitted disease ? No Problems Problem Type SNOMED Code ICD Code Onset Dates Problem Status W/U Status Risk Notes Problem Human papilloma virus deoxyribonucleic acid test positive, high risk on vaginal specimen (914618502866941) Cervical high risk human papillomavirus (HPV) DNA test positive (R87.810) Active confirmed Problem Incomplete uterovaginal prolapse (076363989) Incomplete uterovaginal prolapse (N81.2) Active confirmed Problem Herniation of rectum into vagina (562306453) Rectocele (N81.6) Active confirmed Problem Atypical squamous cells of undetermined significance on cervical Papanicolaou smear (673847651) Atypical squamous cells of undetermined significance on cytologic smear of cervix (ASC-US) (R87.610) Active confirmed Problem Mild cervical dysplasia (865479377) Mild cervical dysplasia (N87.0) Active confirmed Problem Essential hypertension (72176773) Essential (primary) hypertension (I10) Active confirmed Problem Cystocele (081684324) Cystocele, unspecified (N81.10) Active confirmed Problem Abnormal uterine bleeding (63424627320124) Abnormal uterine and vaginal bleeding, unspecified (N93.9) Active confirmed Problem Unspecified menopausal and perimenopausal disorder (N95.9) Active confirmed Problem Screening for malignant neoplasm of breast (750882396) Encounter for screening mammogram for malignant neoplasm of breast (Z12.31) Active confirmed Problem History of dysplasia of cervix (624386570) Personal history of cervical dysplasia (Z87.410) Active confirmed Problem Menopause (581200357) Menopausal and female climacteric states (N95.1) Active confirmed Problem care (748478369) Supervision of other normal (V22.1) Active confirmed Diag Vital Signs Temperature 97.4 degrees Fahrenheit 10/26/2023 Blood pressure diastolic 74 mm Hg 10/26/2023 Height 65 in 10/26/2023 Blood pressure systolic 118 mm Hg 10/26/2023 Weight 220 lbs 10/26/2023 BMI 36.61 kg/m2 10/26/2023 Encounters Encounter Location Date Provider Diagnosis Total [address] [place] [address] 10/26/2023 Leanna Toledo Encounter for gynecological examination [...] Rectocele (ICD-10 - N81.6) Plan Of Treatment Pending Test Test Name Order Date HCG PLUS BETA 03/17/2021 MM Digital Mammo Screening 10/16/2021 MM Digital Mammo Screening 10/22/2022 MM Digital Mammo Screening 10/26/2023 Next Appt Details Provider Name:Leanna musa, 10/30/2024 08:20:00 AM, [address], [address], [place], [address], Insurance Providers Payer Name Payer Address Payer Phone Subscriber Number Group Number Insured Name Patient Relationship to Insured Coverage Start Date Coverage End Date VAHID DILLARD [address] [place] [phone] [id number] MARY CHARLES Self - patient is the insured Medical (General) History Medical History History ICD Code Essential (primary) hypertension I10 Atypical squamous cells of u ndetermined significance on cytologic smear of cervix (ASC-US) R87.610 Cervical high risk human papillomavirus (HPV) DNA test positive R87.810 Mild cervical dysplasia N87.0 Menopausal and female climacteric states N95.1 Rectocele N81.6 Cystocele, unspecified N81.10 Incomplete uterovaginal prolapse N81.2 Abnormal uterine and vaginal bleeding, u nspecified N93.9 Unspecified menopausal and perimenopausa l disorder N95.9 Surgical History Surgery Date(Month/Year) Hand Surgery Foot Surgery Cholecystectomy Colposcopy LEEP Hospitalization History Reason Date(Month/Year) See Surgical Hx 2 Vaginal Deliveries
== END 2024-07-02 09:46 | disposition home or self-care (01) ==
PROVIDERS: PCP Physician Assistant Medical; Visit Provider Physician Assistant Medical
DX: I10 Essential (primary) hypertension (principal); E66.811 Obesity, class 1; Z68.34 Body mass index [BMI] 34.0-34.9, adult; E78.00 Pure hypercholesterolemia, unspecified; R73.01 Impaired fasting glucose; L30.9 Dermatitis, unspecified

== ENCOUNTER → 2024-07-02 08:54 | Outpatient (BNVA) | payer OTHER, SELFPAY | PROVIDERS: PCP Physician Assistant Medical; Visit Provider Physician Assistant Medical ==

== ENCOUNTER 2024-07-02 09:42 | Outpatient (REF) | payer OTHER, SELFPAY ==
[2024-07-02 11:24] LABS: Estimated Average Glucose 100 mg/dL; Hemoglobin A1C 115.9841 umol/L; Hemoglobin A1c % 5.1 % (<6.0); Total Hemoglobin (HGBA1C) 3570.9933 umol/L
[2024-07-02 11:30] LABS: Anion Gap 13 (12-20); Blood Urea Nitrogen 10 mg/dL (9-16); Calcium 9.7 mg/dL (8.4-10.2); Carbon Dioxide 24 mmol/L (22-29); Chloride 108 mmol/L (96-108); Cholesterol 181 mg/dL (<200); Estimated Glomerular Filt Rate > 60; Glucose Random 91 mg/dL (60-115); HDL Cholesterol 37 mg/dL (>40); LDL Cholesterol Calculated 112 mg/dL (<100); Potassium 3.8 mmol/L (3.3-5.1); Sodium 141 mmol/L (135-145); Triglycerides 162 mg/dL (<150)
== END 2024-07-02 09:43 | disposition home or self-care (01) ==
LOC: HO.WFDLDS 09:42
PROVIDERS: Visit Provider Physician Assistant Medical
DX: E66.811 Obesity, class 1 (principal); Z68.34 Body mass index [BMI] 34.0-34.9, adult; R73.01 Impaired fasting glucose; I10 Essential (primary) hypertension; E78.00 Pure hypercholesterolemia, unspecified; L30.9 Dermatitis, unspecified; Z79.899 Other long term (current) drug therapy
CPT/HCPCS: 36415; 80048; 80061; 83036; 96127

== ENCOUNTER 2024-10-01 08:52 | Outpatient (AMB) | payer OTHER, SELFPAY ==
--- OUTSIDE RECORDS SUMMARY | 2024-10-01 08:59 | XMS_ITS | Patient Health Record ---
Author Organization [employer] [facility] Address [address] [place] [address] Care Team Providers Care District Manager Postal Service Name Role Phone Leanna Toledo Unavailable [phone] Allergies Allergen (clinical drug ingredient) Drug/Non Drug [...] test positive, high risk on vaginal specimen (948575617896522) Cervical high risk human papillomavirus (HPV) DNA test positive (R87.810) Active confirmed Problem Incomplete uterovaginal prolapse (782235460) Incomplete uterovaginal prolapse (N81.2) Active confirmed Problem Herniation of rectum into vagina (146097827) Rectocele (N81.6) Active confirmed Problem Atypical squamous cells of undetermined significance on cervical Papanicolaou smear (660543044) Atypical squamous cells of undetermined significance on cytologic smear of cervix (ASC-US) (R87.610) Active confirmed Problem Mild cervical dysplasia (373923074) Mild cervical dysplasia (N87.0) Active confirmed Problem Essential hypertension (18845085) Essential (primary) hypertension (I10) Active confirmed Problem Cystocele (548383548) Cystocele, unspecified (N81.10) Active confirmed Problem Abnormal uterine bleeding (70781657024171) Abnormal uterine and vaginal bleeding, unspecified (N93.9) Active confirmed Problem Unspecified menopausal and perimenopausal disorder (N95.9) Active confirmed Problem Screening for malignant neoplasm of breast (390241394) Encounter for screening mammogram for malignant neoplasm of breast (Z12.31) Active confirmed Problem History of dysplasia of cervix (371800506) Personal history of cervical dysplasia (Z87.410) Active confirmed Problem Menopause (252970442) Menopausal and female climacteric states (N95.1) Active confirmed Problem care (461290072) Supervision of other normal (V22.1) Active confirmed Diag Vital Signs Temperature 97.4 degrees Fahrenheit 10/26/2023 Blood pressure diastolic 74 mm Hg 10/26/2023 Height 65 in 10/26/2023 Blood pressure systolic 118 mm Hg 10/26/2023 Weight 220 lbs 10/26/2023 BMI 36.61 kg/m2 10/26/2023 Encounters Encounter Location Date Provider Diagnosis Total [address] [place] [address] 10/26/2023 Leanna Toledo Encounter for gynecological examination [...] PLUS BETA 03/17/2021 MM Digital Mammo Screening 10/22/2022 MM Digital Mammo Screening 10/16/2021 MM Digital Mammo Screening 10/26/2023 Next Appt Details Provider Name:Leanna musa, 10/30/2024 08:20:00 AM, [address], [address], [place], [address], Insurance Providers Payer Name Payer Address Payer Phone Subscriber Number Group Number Insured Name Patient Relationship to Insured Coverage Start Date Coverage End Date VAHID DILLARD [address] [place] [phone] [id number] MARY CHARLES Self - patient is the [...]
--- OUTSIDE RECORDS SUMMARY | 2024-10-01 08:59 | XMS_ITS ---
Author Organization [facility] Address [address] [place] [address] Care Team Providers Care Powder Nipper Name Role Phone Leanna Toledo Unavailable [phone] Allergies Allergen (clinical drug ingredient) Drug/Non Drug Allergy documented on EMR Reaction Allergy Type Onset Date Status amoxicillin Amoxicillin Unknown Drug Allergy Act genoveva Penicillin Hives Drug Allergy Active Results Component Value Reference Range Notes Urinalysis Reviewed date:10/26/2023 08:25:51 AM Interpretation: Performing Lab: Notes/Report: PH 5.0 PROTEIN Neg GLUCOSE Neg BLOOD Neg REASON FOR VISIT Annual ANESTHESIOLOGY CRNA Physical, Annual ANESTHESIOLOGY CRNA Physical 40-49 Medications Medication SIG (Take, Route, [...] 10/26/2023 Encounters Encounter Location Date Provider Diagnosis [address] [address] 10/26/2023 Leanna Toledo Encounter for gynecological examination [...] Provider Name:Leanna musa, 10/30/2024 08:20:00 AM, [address], [address], [place], [address], Progress Notes * MARY CORNEJODOB:1975 (48 yo F)Acc No.[id number]:10/26/2023 PROGRESS NOTES Patient:?MARY CORNEJO Appointment Provider:?Leanna musa M.D. :1975???Age:48 Y???Sex:Female D ate:10/26/2023 Address:[address] [place] [address], , [id number] Subjective: * Chief Complaints: * ??? Annual ANESTHESIOLOGY CRNA PhysicalAnnua l ANESTHESIOLOGY CRNA Physical 40-49 * HPI: ???New/Follow-up Patient Consult:? [...] adequate calcium via diet and supplementation ?Significant ANESTHESIOLOGY CRNA problems:?no significant director of food and nutrition symptoms or problems * ROS:?general:?no?chest pain.?no?palpitations.?no?headache.?no?cough.?no?shortness of breath.?no?fever.?no?unexplained weight loss.?no?nausea/vomiting.?no?change in bowel movements.?no blood in stool.?no?genitourinary complaints.?no?skin complaints.? * Medical History:? 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 * Examination: ???General Exam: ?CONSTITUTIONAL:?General Appearance:?alert, in no acute distress, normal, well nourished ?NECK/THYROID:?Inspection/Palpation:?normal ?Thyroid:?normal size and shape ?RESPIRATORY:?Auscultation: clear to auscultation bilaterally, Respiratory Effort: normal.?CARDIOVASCULAR:?Auscultation: regular rate and rhythm.?BREAST, Right:?Inspection/Palpation:?no discharge, no masses present, no nipple retraction, no skin changes, no skin dimpling, no tenderness, no lymphadenopathy, no axillary mass, no axillary tenderness ?BREAST, Left:?Inspection/Palpation:?no discharge, no masses present, no nipple retraction, no skin changes, no skin dimpling, no tenderness, no lymphadenopathy, no axillary mass, no axillary tenderness ?GASTROINTESTINAL:?Abdomen:?no masses, nontender, nondistended ?Liver and Spleen:?normal ?Hernias:?no hernias present, no inguinal adenopathy ?MUSCULOSKELETAL:?Inspection/Palpation:?no clubbing, cyanosis, or edema ?SKIN:?Skin:?normal ?NEURO/PSYCH:?Orientation:?time , place, person ?Mood/Affect:?normal?Genitourinary: ?EXTERNAL GENITALIA:?External Genitalia:?normal, no lesions ?VAGINA:?Vagina:?normal appearance, no abnormal discharge, no lesions, rectocele present (2nd degree) ?BLADDER:?Bladder:?no mass, nontender ?URETHRA:?Urethra:?no erythema or lesions present ?CERVIX:?Cervix:?no lesions, nontender cervix is 1 cm above the introital opening ?UTERUS:?Uterus:?nontender, normal contour, normal mobility, normal size ?ADNEXA:?Adnexa:?no masses, no tenderness ?ANUS AND PERINEUM:?Anus/Perineum:?visually normal??? Assessment: * Assessment: 1.?Encounter for gynecologic al examination (general) (routine) without abnormal findings - Z01.419?2.?Encounter for screening mammogram for malignant neoplasm of breast - Z12.31?3.?Unspecified menopausal and perimenopausal disorder - N95.9?4.?Personal history of cervical dysplasia - Z87.410?5.?Incomplete uterovaginal prolapse - N81.2?6.?Rectocele - N81.6? Plan: * Treatment: ? Value Reference Range ?PH 5.0 * ?PROTEIN Neg * ?GLUCOSE Neg * ?BLOOD Neg * D., JUAQUIN 10/26/2023 08:24:36 AM EDT > Notes: [...] * Images: Billing Information: * Visit Code:? 49751 Preventive Care New Pt. Age 40-64. 66795 Preventive Care Est Pt. Age 40-64. * Procedure Codes:? * Sign off status: Completed true * Appointment Provider:?Leanna Toledo M.D. Date:?10/26/2023 Generated for Samarai ronak/Michelle/eTransmitting on:?10/01/2024 08:58 AM EDT History and Physical Notes * HPI (History [...] ate calcium via diet and supplementation Significant ANESTHESIOLOGY CRNA problems:: n o significant director of food and nutrition symptoms or problems Examination Category Sub-Category Detail Notes Category Not es General Exam CONSTITUTIONAL: General Appearan ce:: alert, in no acute distress, normal, well nourished NECK/THYROID: Thyroid:: normal size and shape Inspection/Palpation:: normal RESPIRATORY: Auscultation: clear to auscultation bilaterally, Respiratory Effort: normal CARDIOVASCULAR: Auscultation: regula r rate and rhythm GASTROINTESTINAL: Hernias:: no hernias present, no inguinal adenopathy Liver and Spleen:: normal Abdomen:: no masses, nontender, nondiste nded MUSCULOSKELETAL: Inspection/Palpation:: no clubb ing, cyanosis, or edema SKIN: Skin:: normal NEURO/PSYCH: Mood/Affect:: normal Orientation:: time , place, person BREAST, Right: Inspection/Palpation :: no discharge, no [...]
--- NOTE | 2024-10-01 09:14 | MHC.PC.OV ---
Vital Signs 10/01/24 09:20 Height 5 ft 5 in Weight 185 lb 4 oz BMI 30.8 BP 116/72 Blood Pressure Location Rt brachial Position Sitting Pulse 81 Pulse Source Pulse Oximeter Temp 98.6 F Temp Source Temporal Artery Scan Pulse Oximetry (%) 98 Oxygen Delivery Method Room Air Intake Visit Reasons: med review Intake Note: Fela presents in the office today for a medication review. Allergies Penicillins Allergy (Unknown, Verified 10/01/24 09:16) welts all over body Tobacco use date assessed: 10/01/24 Dental Screening Dental Screen Date: 10/01/24 Did you have a dental visit in the last 12 months?: Yes Did you have a dental problem in the last 6 months where you did not have access to dental care?: No Was dental information given to patient?: Patient has dentist HPI HPI Comments History of Present Illness Details This is a 49-year-old female with a past medical history of hypertension, obesity, impaired fasting glucose, hyperlipidemia and anxiety presenting for a medication check. Patient is taking Zepbound 10 mg weekly. She denies side effects on the medication. She lost 40 lb since starting the medication after her visit in 04/11/2024. She is also following a low carbohydrate, low sugar, low-salt diet and monitoring her caloric intake. She walks for exercise. She she decreased alcohol intake and then stopped drinking alcohol completely in June 2024. Since losing weight and stopping alcohol her blood pressure normalized. Her initial lab work in March 2024 showed impaired fasting glucose with a hemoglobin A1c of 5.3% and hyperlipidemia with an LDL cholesterol of 146, HDL of 35, triglycerides 207. She repeated her blood work in June 2024, and her HDL is 37, LDL 112, triglycerides 162 and hemoglobin A1c 5.1%. She is seeing a chiropractor for some chronic tension in her neck and pain in her right arm. This is helping. ROS: Constitutional: No unexplained weight loss, fever, chills or night sweats. Respiratory: No shortness of breath, cough or sputum production. Cardiovascular: No chest pain, chest pressure or chest discomfort. Gastrointestinal: No abdominal pain, nausea, vomiting, anorexia or constipation. Endocrine: No cold or heat intolerance. No polyuria or polydipsia. Psychiatric: Denies depression. Her son is doing a bit better. She still has stress at her job and at home, but she feels that she is managing this okay. Physical exam: Constitutional: Alert, in no distress. Neck: Supple, Full range of motion. No lymphadenopathy. No palpable thyroid masses. Respiratory: Clear to auscultation. Cardiovascular: S1 S2 regular. No murmurs Extremities: Warm and well perfused. No clubbing, cyanosis or edema. Psychiatric: Normal mood and affect PENDING SALE TO [facility] Medical History (Updated 07/02/24 @ 09:49 by NATALIE Solorio) Eczema Obesity, class 1 IFG (impaired fasting glucose) Colon polyp Obesity, Class II, BMI 35-39.9 Routine physical examination Pure hypercholesterolemia Anxiety Palpitations Hypertension Surgical History History of ankle surgery Family History Maternal Grandfather Prostate cancer Mother Diabetes Cancer of kidney Maternal Uncle Family history of hemochromatosis Social History (Updated 10/01/24 @ 09:17 by Rosalia Chinchilla MA) Household Members: Spouse and Children Both parents involved: No Caregiver staying overnight: No Housing: House Are you a primary career development facilitator to a significant other at home: Yes Do you presently have visiting nurse or other home services: No 75 years or older and lives alone: No Alcohol intake: never Patient Tobacco Use Status: Never used Tobacco e-Cigarette/Vaping Use: Never Used Second Hand Smoke Exposure: No service: No Current occupational status: employed 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 1. Little interest or pleasure in doing things: not at all 2. Feeling down, depressed, or hopeless: several days 3. Trouble falling or staying asleep, or sleeping too much: several days 4. Feeling tired or having little energy: several days 5. Poor appetite or overeating: not at all 6. Feeling bad about yourself - or that you are a failure or have let yourself or your family down: several days 7. Trouble concentrating on things, such as reading the newspaper or watching television: not at all 8. Moving or speaking so slowly that other people could have noticed. Or the opposite - being so fidgety or restless that you have been moving around a lot more than usual: not at all 9. Thoughts that you would be better off or of hurting yourself in some way: not at all Total score: 4 Depression Screening Interpretation: Positive Depression Screening Follow-up: Other (see ROS) Depression Screening Done: Yes 62798 - PHQ-9 Billing: Patient declined-do not bill Source: Developed by Drs. Panda Guzman, Madelyn Casiano, Prakash Fletcher and colleagues, with an educational stephan from [employer]. Thrive Questionnaire Date Thrive assessed: 10/01/24 I am a: Patient What is your living situation today?: I have a steady place to live Within the past 12 months, did the food you bought not last and you didn't have the money to get more?: Never true Within the past 12 months, did you worry whether your food would run out before you got money to buy more?: Never true Do you have trouble paying for medicines?: No Do you have trouble getting transportation to medical appointments?: No Do you have trouble paying your heating and electricity bill?: No Do you have trouble taking care of your child, family member or friend?: No Do you have trouble with day-to-day activities such as bathing, preparing meals, shopping, managing finances, etc.?: No Are you currently unemployed and looking for a job?: No Are you interested in more education?: No Please select the resources that you would like help with: None Currently or been in a relationship where the following occur: No concerns reported THRIVE Score: 0 AUDIT C Alcohol Use Questionnaire (AUDIT-C) 1. How often do you have a drink containing alcohol?: Never Total Score: 0 Score Reviewed/Action Taken: No JOSE-7 AMB Questionnaire JOSE-7 Date JOSE - 7 assessed: 10/01/24 Feeling nervous, anxious, or on edge: 1 = Several days Not being able to stop or control worryin = Not at all Worrying too much about different things: 1 = Several days Trouble relaxin = Several days Being so restless that it is hard to sit still: 0 = Not at all Becoming easily annoyed or irritable: 1 = Several days Feeling afraid as if something awful might happen: 0 = Not at all Total JOSE-7 score (0-4 normal; 5-9 mild; 10-14 moderate; 15-21 severe): 4 Source: Developed by Drs. Panda Guzman, Madelyn Casiano, Prakash Fletcher and colleagues, with an educational stephan from [employer]. JOSE-7 Assessment Billing JOSE-7 Assessment Tool: JOSE-7 Assessment 65191 Physical exam (Primary Care) Vital Signs: Last Vital Signs Temp 98.6 F 10/01/24 09:20 Pulse 81 10/01/24 09:20 BP 116/72 10/01/24 09:20 Pulse Ox 98 10/01/24 09:20 Oxygen Delivery Method Room Air 10/01/24 09:20 BMI result Body Mass Index 30.8 Tobacco/Smoking Status: Tobacco use Status Tobacco use date assessed 10/01/24 10/01/24 09:24 Patient Tobacco Use Status Never used Tobacco 10/01/24 09:24 e-Cigarette/Vaping Use Never Used 10/01/24 09:24 PHQ-9: PHQ-9 Score PHQ-9: Total score 4 10/01/24 09:24 Depression Screening Interpretation: Positive Depression Screening Follow-up: Other (see ROS) Thrive Assessment: Date of Thrive Assessment Date Thrive assessed 10/01/24 10/01/24 09:24 Currently or been in a relationship where the following occur: No concerns reported Coding Level of Care Code Est Pt Level 4 (63618) Complex EM visit Add On G2211 Diagnoses Obesity, class 1 E66.811 Pure hypercholesterolemia E78.00 Hypertension I10 IFG (impaired fasting glucose) R73.01 Additional Codes JOSE-7 Assessment Billing - OJSE-7 Assessment Tool: JOSE-7 Assessment 55334 ([id number]) Assessment & Plan Assessment & Plan (1) Obesity, class 1: Code(s): E66.811 - Obesity, class 1 Category: Medical Plan: The patient will continue lifestyle modifications including monitoring caloric intake, low carbohydrate, low sugar diet. She stopped drinking alcohol. I congratulated her on these changes. She walks for exercise. She lost 40 lb on Zepbound. She does not need a refill today. She is thinking about increasing to 12.5 mg when she is next due for the medication, and she will message me via the portal if she wants to do this. (2) Pure hypercholesterolemia: Code(s): E78.00 - Pure hypercholesterolemia, unspecified Category: Medical Plan: Continue low-cholesterol diet. Continue exercising. Repeat lipid profile prior to physical exam scheduled in the fall. (3) Hypertension: Code(s): I10 - Essential (primary) hypertension Category: Medical Plan: This resolved with lifestyle modifications and weight loss. (4) IFG (impaired fasting glucose): Code(s): R73.01 - Impaired fasting glucose Category: Medical Plan: Continue GLP 1 and efforts at weight loss and low carb/low sugar diet. Recheck A1c and fasting glucose in the fall. Plan She will schedule a physical exam in March 2025. Orders: Orders Vitamin B12 03/20/25 E78.00 - Pure hypercholesterolemia, unspecified, I10 - Essential (primary) hypertension, R73.01 - Impaired fasting glucose, Z00.00 - Encounter for general adult medical examination without abnormal findings, Z91.89 - Other specified personal risk factors, not elsewhere classified Complete Blood Count no Diff 03/20/25 E78.00 - Pure hypercholesterolemia, unspecified, I10 - Essential (primary) hypertension, R73.01 - Impaired fasting glucose, Z00.00 - Encounter for general adult medical examination without abnormal findings Comprehensive Met. Panel 03/20/25 E78.00 - Pure hypercholesterolemia, unspecified, I10 - Essential (primary) hypertension, R73.01 - Impaired fasting glucose, Z00.00 - Encounter for general adult medical examination without abnormal findings Lipid Panel 03/20/25 E78.00 - Pure hypercholesterolemia, unspecified, E78.5 - Hyperlipidemia, unspecified, I10 - Essential (primary) hypertension, R73.01 - Impaired fasting glucose, Z00.00 - Encounter for general adult medical examination without abnormal findings Hemoglobin A1c 03/20/25 E11.9 - Type 2 diabetes mellitus without complications, E78.00 - Pure hypercholesterolemia, unspecified, I10 - Essential (primary) hypertension, R73.01 - Impaired fasting glucose, Z00.00 - Encounter for general adult medical examination without abnormal findings
[2024-10-01 09:20] VITALS: BP 116/72; PULSE 81; TEMP 37; O2SAT 98; BMI 30.8
== END 2024-10-01 09:59 | disposition home or self-care (01) ==
LOC: HO.HMCFM 08:53
PROVIDERS: PCP Physician Assistant Medical; Visit Provider Physician Assistant Medical
DX: E78.00 Pure hypercholesterolemia, unspecified (principal); E66.811 Obesity, class 1; Z68.30 Body mass index [BMI] 30.0-30.9, adult; I10 Essential (primary) hypertension; R73.01 Impaired fasting glucose

== ENCOUNTER → 2024-10-01 08:52 | Outpatient (BNVA) | payer OTHER, SELFPAY | PROVIDERS: PCP Physician Assistant Medical; Visit Provider Physician Assistant Medical | DX: E66.811 Obesity, class 1 (principal); Z68.30 Body mass index [BMI] 30.0-30.9, adult; E78.00 Pure hypercholesterolemia, unspecified; I10 Essential (primary) hypertension; R73.01 Impaired fasting glucose | CPT/HCPCS: 96127 ==

== ENCOUNTER 2025-04-01 15:44 | Outpatient (AMB) | payer OTHER, SELFPAY ==
--- NOTE | 2025-04-01 16:12 | A.OFFPC_ITS ---
Vital Signs 04/01/25 16:16 Height 5 ft 5 in Weight 166 lb 8 oz BMI 27.7 BP 116/70 Blood Pressure Location Rt brachial Position Standing Respiration 16 Pulse 91 Pulse Source Pulse Oximeter Temp 98 F Temp Source Temporal Artery Scan Pulse Oximetry (%) 97 Oxygen Delivery Method Room Air Intake Visit Reasons: annual physical exam Intake Note: Fela presents in the office today for her annual physical. Allergies Penicillins Allergy (Unknown, Verified 04/01/25 16:14) welts all over body Medication List - Last Reconciled 04/01/25 by NATALIE Solorio tirzepatide (weight loss) (Zepbound) 12.5 mg (0.5 mL) subcut QWEEK triamcinolone acetonide 0.1% 1 appl topical BID PRN 7 days Tobacco use date assessed: 04/01/25 Dental Screening Dental Screen Date: 04/01/25 Did you have a dental visit in the last 12 months?: Yes Did you have a dental problem in the last 6 months where you did not have access to dental care?: No Was dental information given to patient?: Patient has dentist HPI HPI Comments History of Present Illness Details This is a 49-year-old female with a past medical history of obesity, hypertension, palpitations, anxiety, and hyperlipidemia presenting for a physical exam. She is doing well on tirzepatide 12.5 mg weekly. Started nutrofol and shampoo for thinning hair. Unsure if that is related to the medication or menopause. Weight is down from 185 lb 4 oz to 166 lb 8 oz since September of 2024. Patient's goal weight is 155 lb. She is going through divorce mediation with her . [id number] a couple of weeks ago from cervical cancer. She will schedule her mammogram due in April. 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 She had a colonscopy December 2023. She had 1 polyp and diverticulosis. Repeat colonoscopy advised in 3 years. Eye and dental exams are scheduled. She has a full-body dermatology exam scheduled. ROS: Constitutional: No unexplained weight loss, fever, chills chills or night sweats. +fatigue. Eyes: No vision changes, blurry vision, double vision, eye pain, eye redness, eye discharge. ENT: No hearing loss, sneezing, congestion, runny nose or sore throat. Respiratory: No shortness of breath, cough or sputum production. Cardiovascular: No chest pain, chest pressure or chest discomfort. No palpitatio ns or pedal edema. Gastrointestinal: No anorexia, nausea, vomiting or diarrhea. No abdominal pain or blood in stool. Genitourinary: No dysuria, hematuria, urinary frequency. Neurologic: No headache, dizziness, syncope, unilateral weakness, ataxia, numbness or tingling in the extremities. Musculoskeletal: No joint pain or swelling. Hematologic/Lymphatics: No bleeding or bruising. No painful lymph nodes. Skin: No rash or itching. Endocrine: No cold or heat intolerance. No polyuria or polydipsia. Psychiatric: No SI or HI. Denies depression. Physical exam: Constitutional: Alert, in no distress. Head: Normocephalic. Eyes: Pupils are equal, round and reactive to light. Extraocular muscles intact. Ear, Nose and Throat: Canals clear. TMs normal. Normal nasal mucosa. No nasal discharge. No oral lesions. Neck: Supple, Full range of motion. No lymphadenopathy. No palpable thyroid masses. Respiratory: Clear to auscultation. Cardiovascular: S1 S2 regular. No murmurs. No carotid bruits. Gastrointestinal: Abdomen soft, non-tender, non-distended. Normal bowel sounds. No palpable masses. Neurologic: No focal neurological deficits. Symmetric patellar reflexes. Moves all extremities spontaneously. Sensation intact bilaterally. Skin: No rashes or lesions. Musculoskeletal: No gross deformities. Normal range of motion. Extremities: Warm and well perfused. No clubbing, cyanosis or edema. Intact peripheral pulses bilaterally Psychiatric: Normal mood and affect [facility] Medical History (Updated 04/01/25 @ 17:01 by NATALIE Solorio) Hair loss Eczema Obesity, class 1 IFG (impaired fasting glucose) Colon polyp Obesity, Class II, BMI 35-39.9 Routine physical examination Pure hypercholesterolemia Anxiety Palpitations Hypertension Surgical History History of ankle surgery Family History Maternal Grandfather Prostate cancer Mother Diabetes Cancer of kidney Maternal Uncle Family history of hemochromatosis Social History (Updated 04/01/25 @ 16:14 by Rosalia Chinchilla CMA) Household Members: Spouse and Children Both parents involved: No Caregiver staying overnight: No Housing: House Are you a primary special needs child caregiver to a significant other at home: Yes Do you presently have visiting nurse or other home services: No 75 years or older and lives alone: No Alcohol intake: never Patient Tobacco Use Status: Never used Tobacco e-Cigarette/Vaping Use: Never Used Second Hand Smoke Exposure: No Use of substances other than those prescribed or required for medical reasons: No service: No Current occupational status: employed 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 1. Little interest or pleasure in doing things: not at all 2. Feeling down, depressed, or hopeless: not at all 3. Trouble falling or staying asleep, or sleeping too much: nearly every day 4. Feeling tired or having little energy: several days 5. Poor appetite or overeating: not at all 6. Feeling bad about yourself - or that you are a failure or have let yourself or your family down: not at all 7. Trouble concentrating on things, such as reading the newspaper or watching television: not at all 8. Moving or speaking so slowly that other people could have noticed. Or the opposite - being so fidgety or restless that you have been moving around a lot more than usual: not at all 9. Thoughts that you would be better off or of hurting yourself in some way: not at all Total score: 4 Depression Screening Interpretation: Negative Depression Screening Done: Yes 55522 - PHQ-9 Billing: Yes Source: Developed by Drs. Panda Guzman, Madelyn Casiano, Prakash Fletcher and colleagues, with an educational stephan from [employer]. Thrive Questionnaire Date Thrive assessed: 04/01/25 I am a: Patient What is your living situation today?: I have a steady place to live Within the past 12 months, did the food you bought not last and you didn't have the money to get more?: Never true Within the past 12 months, did you worry whether your food would run out before you got money to buy more?: Never true Do you have trouble paying for medicines?: No Do you have trouble getting transportation to medical appointments?: No Do you have trouble paying your heating and electricity bill?: No Do you have trouble taking care of your child, family member or friend?: No Do you have trouble with day-to-day activities such as bathing, preparing meals, shopping, managing finances, etc.?: No Are you currently unemployed and looking for a job?: No Are you interested in more education?: No Please select the resources that you would like help with: None Currently or been in a relationship where the following occur: No concerns reported THRIVE Score: 0 AUDIT C Alcohol Use Questionnaire (AUDIT-C) 1. How often do you have a drink containing alcohol?: Never 3. How often do you have six or more drinks on one occasion?: Never Total Score: 0 JOSE-7 AMB Questionnaire JOSE-7 Date JOSE - 7 assessed: 04/01/25 Feeling nervous, anxious, or on edge: 1 = Several days Not being able to stop or control worryin = Several days Worrying too much about different things: 1 = Several days Trouble relaxin = Several days Being so restless that it is hard to sit still: 0 = Not at all Becoming easily annoyed or irritable: 0 = Not at all Feeling afraid as if something awful might happen: 0 = Not at all Total JOSE-7 score (0-4 normal; 5-9 mild; 10-14 moderate; 15-21 severe): 4 Source: Developed by Drs. Panda Guzman, Madelyn Casiano, Prakash Fletcher and colleagues, with an educational stephan from [employer]. JOSE-7 Assessment Billing JOSE-7 Assessment Tool: JOSE-7 Assessment 06357 Physical exam (Primary Care) Vital Signs: Last Vital Signs Temp 98 F 04/01/25 16:16 Pulse 91 04/01/25 16:16 Resp 16 04/01/25 16:16 BP 116/70 04/01/25 16:16 Pulse Ox 97 04/01/25 16:16 Oxygen Delivery Method Room Air 04/01/25 16:16 BMI result Body Mass Index 27.7 Tobacco/Smoking Status: Tobacco use Status Tobacco use date assessed 04/01/25 04/01/25 16:21 Patient Tobacco Use Status Never used Tobacco 04/01/25 16:14 e-Cigarette/Vaping Use Never Used 04/01/25 16:14 PHQ-9: PHQ-9 Score PHQ-9: Total score 4 04/01/25 16:36 Depression Screening Interpretation: Negative Thrive Assessment: Date of Thrive Assessment Date Thrive assessed 04/01/25 04/01/25 16:21 Currently or been in a relationship where the following occur: No concerns reported Office Procedures Flu Questionnaire Does the patient have a severe egg allergy?: No Does the patient have severe life threatening allergies?: No Does the patient have a fever or illness today?: No Has the patient ever had Guillain-Bangor Syndrome?: No Has the patient ever had any past reaction to a flu shot?: No Immunizations Fluarix 9973-5199 (PF) 45 mcg (15 mcg x 3)/0.5 mL IM syringe Performing Provider: NATALIE Solorio Performing Location: [facility] Administered by: Rosalia Chinchilla CMA on 04/01/25 16:25 Dose Route Admin Location Dispensed Lot Number Expiration Date [facility] [employer] 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 0.5 mL IM Left Deltoid 0.5 mL [id number] 11/19/25 15948-020-99 Looklet VIS Given Date VIS Provided VIS Publication Date 04/01/25 Single Vaccine 24 Eligibility Eligibility Date Funding Source Not [facility] Eligible 04/01/25 Private Coding Level of Care Code Est Pt Prev Care 40-64y(18737) Diagnoses Routine physical examination Z00.00 Pure hypercholesterolemia E78.00 Obesity, Class II, BMI 35-39.9 E66.812 Hair loss L65.9 Additional Codes JOSE-7 Assessment Billing - JOSE-7 Assessment Tool: JOSE-7 Assessment 80393 ([id number]) PHQ-9 - 07299 - PHQ-9 Billing: Yes ([id number]) Assessment & Plan Assessment & Plan (1) Routine physical examination: Code(s): Z00.00 - Encounter for general adult medical examination without abnormal findings Category: Medical Plan: Patient is seen today for a routine physical. 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 Recommended Mediterranean diet and exercise 5 days per week for 30 minutes to promote weight loss. (3) Obesity, Class II, BMI 35-39.9: Code(s): E66.812 - Obesity, class 2 Category: Medical Plan: She is doing well on tirzepatide. Maintain current dose since she is continuing to lose weight. She is not yet at goal weight and is still in the overweight BMI range. Continue lifestyle modification. (4) Hair loss: Code(s): L65.9 - Nonscarring hair loss, unspecified Category: Medical Plan: Check labs. Plan Follow up in 6 months for a med check. Orders: Orders Influenza [id number] Immunization Today Z23 - Encounter for immunization Vitamin D 25-OH (D2 and D3) Today L65.9 - Nonscarring hair loss, unspecified TSH reflex Free T4 Today L65.9 - Nonscarring hair loss, unspecified
[2025-04-01 16:16] VITALS: BP 116/70; PULSE 91; RESP 16; TEMP 36.6; O2SAT 97; BMI 27.7
== END 2025-04-01 17:30 | disposition home or self-care (01) ==
LOC: HO.HMCFM 15:45
PROVIDERS: PCP Physician Assistant Medical; Visit Provider Physician Assistant Medical
DX: Z00.00 Encounter for general adult medical examination without abnormal findings (principal); L65.9 Nonscarring hair loss, unspecified; E66.812 Obesity, class 2; Z68.27 Body mass index [BMI] 27.0-27.9, adult; E78.00 Pure hypercholesterolemia, unspecified; Z23 Encounter for immunization

== ENCOUNTER → 2025-04-01 15:44 | Outpatient (BNVA) | payer OTHER, SELFPAY | PROVIDERS: PCP Physician Assistant Medical; Visit Provider Physician Assistant Medical | DX: Z00.00 Encounter for general adult medical examination without abnormal findings (principal); Z23 Encounter for immunization; E78.00 Pure hypercholesterolemia, unspecified; E66.812 Obesity, class 2; Z68.27 Body mass index [BMI] 27.0-27.9, adult; L65.9 Nonscarring hair loss, unspecified; Z79.899 Other long term (current) drug therapy; Z13.31 Encounter for screening for depression; Z13.39 Encounter for screening examination for other mental health and behavioral disorders | CPT/HCPCS: 90471; 90656; 96127 ==

== ENCOUNTER 2025-04-02 08:17 | Outpatient (REF) | payer OTHER, SELFPAY ==
--- OUTSIDE RECORDS SUMMARY | 2025-04-02 08:22 | XMS_ITS | Patient Health Record ---
Author Organization [facility] Address [address] [place] [address] Care Team Providers Care Rand Sewer Name Role Phone BRAULIO MCRAE PA-C Primary Care Provider Leanna Buckley Unavailable [phone] Allergies Allergen (clinical drug ingredient) Drug/Non Drug Allergy documented on EMR Reaction Allergy Type Onset Date Status amoxicillin Amoxicillin Unknown Drug Allergy Act genoveva Penicillin Hives Drug Allergy Active Results Component Value Reference Range Notes PDF Report Reviewed date:11/02/2024 08:41:04 AM Interpretation: Performing Lab:[facility], [address], [address], [place], Phone - [phone], [facility]Report: Clinical Information:Vaginal/Cervical, LMP: 11/21 with Aygestin Source.............Cervix;Vagina Dates / Results....10/16/21 NIL, Neg HPV No. of containers..01 ThinPrep Vial [id number] IGP No Culture 30 Plus Reviewed date:11/02/2024 08:42:59 AM Interpretation: Performing Lab:[facility], [address], [address], [place], Phone - [phone], [facility] Notes/Report: Clinical Information:Vaginal/Cervical, LMP: 11/21 with Aygestin Source.............Cervix;Vagina Dates / Results....10/16/21 NIL, Neg HPV No. of containers..01 ThinPrep Vial DIAGNOSIS: NEGATIVE FOR IN TRAEPITHELIAL LESION OR MALIGNANCY. Specimen adequacy: Satisfactory for evaluation. Endocervical and/or squamous metaplastic cells (endocervical component) are present. Clinician provided ICD10: Z0 1.419 Performed by: Umer Gutierrez , Spa Experience Coordinator (ASCP) . . Note: The Pap smear is a screening test designed to aid in the detection of premalignant and malignant conditions of the uterine cervix. It is not a diagnostic procedure and should not be used as the sole means of detecting cervical cancer. Both false-positive and false-negative reports do occur. . Test Methodology: This liquid based ThinPrep(R) pap test was screened with the use of an image guided system. HPV Aptima Negative Negative This nucleic acid amplification test detects fourteen high-risk HPV types (16,18,31,33,35,39,45,51,52,56,5 8,59,66,68) without differentiation. HPV Genotype Reflex Criteria not met, HPV Genotype not performed. Urinalysis Reviewed date:10/30/2024 08:31:06 AM Interpretation: Performing Lab: Notes/Report: PH 8.0 PROTEIN Neg GLUCOSE Neg BLOOD Neg Reason For Referral No Information Medications Medication SIG (Take, Route, Frequency, Duration) Notes Start Date End Date Status Vitamin C 500 MG as directed Orally Unknown dose Active Fish Oil 1000 MG 1 capsule Orally Onc e a day; Duration: 30 day(s) Active Beet Root Active Zepbound 10 MG/0.5ML Subcutaneous; Durat ion: 28 Days Active Potassium 1 tab Oral; Duration : 14 days Active PreserVision AREDS - as directed Orally Active Social History Tobacco Use: Social History Observation Description Date Details (start date - stop date) Never Smoker NA - NA Sexual History Question Answer Notes Had sex in the past 12 months (vaginal, oral, or anal)? No Have you ever had a Sexually transmitted disease ? No AUDIT-C (Standard) Question Answer Notes Did you have a drink contain ing alcohol in the past year? Yes How often did you have a dri nk containing alcohol in the past year? Daily or almost daily (4 points) How many drinks did you have on a typical day when you were drinking in the past year? 1 or 2 drinks (0 point) How often did you have six o r more drinks on one occasion in the past year? 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 positive, high risk on vaginal specimen (458715758093467) Cervical high risk human papillomavirus (HPV) DNA test positive (R87.810) Active confirmed Problem Incomplete uterovaginal prolapse (680095895) Incomplete uterovaginal prolapse (N81.2) Active confirmed Problem Herniation of rectum into vagina (122416406) Rectocele (N81.6) Active confirmed Problem Atypical squamous cells of undetermined significance on cervical Papanicolaou smear (826435295) Atypical squamous cells of undetermined significance on cytologic smear of cervix (ASC-US) (R87.610) Active confirmed Problem Mild cervical dysplasia (187596864) Mild cervical dysplasia (N87.0) Active confirmed Problem Essential hypertension (49470783) Essential (primary) hypertension (I10) Active confirmed Problem Diverticulitis of colon (857486502) Diverticulitis of intestine, part unspecified, without perforation or abscess without bleeding (K57.92) Active confirmed Problem Cystocele (675360628) Cystocele, unspecified (N81.10) Active confirmed Problem Abnormal uterine bleeding (34168923469510) Abnormal uterine and vaginal bleeding, unspecified (N93.9) Active confirmed Problem Unspecified menopausal and perimenopausal disorder (N95.9) Active confirmed Problem Screening for malignant neoplasm of breast (828319473) Encounter for screening mammogram for malignant neoplasm of breast (Z12.31) Active confirmed Problem History of dysplasia of cervix (368035233) Personal history of cervical dysplasia (Z87.410) Active confirmed Problem Menopause (359073720) Menopausal and female climacteric states (N95.1) Active confirmed Problem care (686700350) Supervision of other normal (V22.1) Active confirmed Diag Vital Signs Temperature 97.4 degrees Fahrenheit 10/30/2024 Blood pressure diastolic 72 mm Hg 10/30/2024 Height 65 in 10/30/2024 Blood pressure systolic 124 mm Hg 10/30/2024 Weight 182 lbs 10/30/2024 BMI 30.28 kg/m2 10/30/2024 Encounters Encounter Location Date Provider Diagnosis [address] [place] [address] 10/30/2024 Leanna Toledo Encounter for gynecological examination (general) (routine) without abnormal findings Z01.419 ; Encounter for screening mammogram for malignant neoplasm of breast Z12.31 ; Personal history of cervical dysplasia Z87.410 and Menopausal and female climacteric states N95.1 Assessments Encounter Date Diagnosis (ICD Code) Assessment Notes Treatment Notes Treatment Clinical Notes Section Notes 10/30/2024 Encounter for gynecological examination (general) (routine) without abnormal findings (ICD-10 - Z01.419) PAP TEST WITH HPV TYPING WAS OBTAINED. 10/30/2024 Encounter for screening mammogram for malignant neoplasm of breast (ICD-10 - Z12.31) REGULAR MAMMOGRAMS AND SBE'S WERE RECOMMENDED. 10/30/2024 Personal history of cervical dysplasia (ICD-10 - Z87.410) DISCUSSED PREVIOUS LEEP FOR LEDY AND SUBSEQUENTLY NEGATIVE PAP TESTS. REPEAT PAP TEST WITH HPV TYPING WAS OBTAINED TODAY. 10/30/2024 Menopausal and female climacteric states (ICD-10 - N95.1) DISCUSSED MENOPAUSE AND SYMPTOMS ASSOCIATED WITH THIS. Plan Of Treatment Pending Test Test Name Order Date HCG PLUS BETA 03/17/2021 MM Digital Mammo Screening 10/16/2021 MM Digital Mammo Screening 10/22/2022 MM Digital Mammo Screening 10/26/2023 MM Digital Mammo Screening 10/30/2024 Next Appt Details Provider Name:Leanna musa, 11/01/2025 09:30:00 AM, [address], [address], [place], [address], Insurance Providers Payer Name Payer Address Payer Phone Subscriber Number Group Number Insured Name Patient Relationship to Insured Coverage Start Date Coverage End Date [facility] [address] [place] [address] [phone] [id number] MARY CHARLES Self - patient is the [...] Unspecified menopausal and perimenopausa l disorder N95.9 Diverticulitis of intestine, part unspecified, without perforation or abscess without bleeding K57.92 Surgical History Surgery Date(Month/Year) Hand Surgery Foot Surgery Cholecystectomy Colposcopy LEEP Colonoscopy Hospitalization History Reason Date(Month/Year) See Surgical Hx 2 Vaginal Deliveries
[2025-04-02 11:20] LABS: Hematocrit 40.0 % (37.0-47.0); Hemoglobin 13.0 g/dl (12.0-16.0); Mean Corpuscular HGB Conc 32.5 g/dl (31.0-35.0); Mean Corpuscular Hemoglobin 30.4 pg (27.0-33.0); Mean Corpuscular Volume 93.5 fL (80.0-98.0); NRBC Abs Auto 0.000 X10*3/uL (0.0-0.012); NRBC Pct Auto 0.0 /100WBC (0.0-0.2); Platelet Count 309 X10*3/uL (160-400); Red Blood Count 4.28 X10*6/uL (4.20-5.50); White Blood Count 6.9 X10*3/uL (4.8-10.8)
[2025-04-02 11:44] LABS: Alanine Aminotransferase 20 U/L (0-31); Albumin Level 4.8 g/dL (3.5-5.0); Alkaline Phosphatase 88 U/L (39-117); Anion Gap 11 (12-20); Aspartate Amino Transferase 23 U/L (5-31); Blood Urea Nitrogen 18 mg/dL (9-16); Calcium 9.9 mg/dL (8.4-10.2); Carbon Dioxide 25 mmol/L (22-29); Chloride 106 mmol/L (96-108); Cholesterol 182 mg/dL (<200); Estimated Glomerular Filt Rate > 60; HDL Cholesterol 38 mg/dL (>40); Potassium 3.9 mmol/L (3.3-5.1); Sodium 138 mmol/L (135-145); Total Protein 7.4 g/dL (6.5-8.0); Triglycerides 127 mg/dL (<150)
[2025-04-02 12:00] LABS: Vitamin B12 297 pg/mL (200-900)
[2025-04-06 13:38] LABS: Vitamin D 25-OH, D2 <4 ng/mL; Vitamin D 25-OH, D3 33 ng/mL; Vitamin D 25-OH, Total 33 ng/mL (30-100)
== END 2025-04-02 08:18 | disposition home or self-care (01) ==
LOC: HO.WFDLDS 08:17
PROVIDERS: Visit Provider Physician Assistant Medical
DX: Z00.00 Encounter for general adult medical examination without abnormal findings (principal); E11.9 Type 2 diabetes mellitus without complications; E78.00 Pure hypercholesterolemia, unspecified; L65.9 Nonscarring hair loss, unspecified; E78.5 Hyperlipidemia, unspecified; I10 Essential (primary) hypertension; Z13.21 Encounter for screening for nutritional disorder; Z91.89 Other specified personal risk factors, not elsewhere classified
CPT/HCPCS: 36415; 80053; 80061; 82306; 82607; 83036; 84443; 85027